=== PATIENT | male | born 1935 | race Hispanic/Latino ===

== ENCOUNTER → 2018-07-13 | Outpatient (CLI) | payer MEDICARE | END | disposition home or self-care (01) | LOC: SHCH 11:09 | PROVIDERS: ATTEND Internal Medicine Cardiovascular Disease | DX: I35.8 Other nonrheumatic aortic valve disorders (principal); R01.1 Cardiac murmur, unspecified | CPT/HCPCS: 93306 ==

== ENCOUNTER → 2018-07-17 | Outpatient (CLI) | payer MEDICARE ==
[~2018-07-17] MED LIST: REGADENOSON 0.4 MG/5 ML PF SYG IVP SCH
== END | disposition home or self-care (01) ==
LOC: SHCH 07:58 → EDUNIT# 08:20
PROVIDERS: ATTEND Internal Medicine Cardiovascular Disease
DX: R01.1 Cardiac murmur, unspecified (principal); I45.10 Unspecified right bundle-branch block
CPT/HCPCS: 78452; 93017; 96374; A9500 ×2; J2785 ×2

== ENCOUNTER 2020-08-31 15:15 | Observation (INO) | payer OTHER ==
[~2020-08-31] VITALS: Ht 167.6 cm; Wt 68.9 kg
[2020-08-31 10:51] LABS: BASOPHILS % (AUTO) 0.9 % (0.0-5.0); HEMATOCRIT 40.7 % (42-54); LYMPHOCYTES % (AUTO) 40.2 % (21.0-51.0); MEAN CORPUSCULAR HEMOGLOBIN 30.9 pg (27.0-33.0); MEAN CORPUSCULAR HGB CONC 33.4 g/dL (32.0-36.0); MEAN CORPUSCULAR VOLUME 92.5 fL (79-99); MONOCYTES % (AUTO) 8.7 % (3.0-13.0); NEUTROPHILS % (AUTO) 47.7 % (40.0-77.0); PLATELET COUNT (AUTO) 167 K/uL (130-400); RED CELL DISTRIBUTION WIDTH 12.7 % (11.0-15.5); WHITE BLOOD COUNT (AUTO) 6.6 K/uL (4.8-10.8)
[2020-08-31 10:52] LABS: APPEARANCE,URINE Clear (CLEAR); BILIRUBIN,URINE Negative (NEGATIVE); COLOR,URINE Yellow (YELLOW); GLUCOSE, URINE (UA) Negative (NEGATIVE); KETONES,URINE Negative (NEGATIVE); LEUKOCYTE ESTERASE ,URINE Negative (NEGATIVE); NITRATE,URINE Negative (NEGATIVE); OCCULT BLOOD,URINE Small (NEGATIVE); PROTEIN,URINE Negative (NEGATIVE); UROBILINOGEN,URINE 0.2 mg/dL (0.2-1.0)
[2020-08-31 10:58] LABS: CREATININE 0.9 mg/dL (0.5-1.5); POTASSIUM 4.3 mmol/L (3.5-5.1)
[2020-08-31 11:01] LABS: INR 1.05 (0.85-1.15); PROTHROMBIN TIME 11.4 SEC (9.6-11.6)
[2020-08-31 11:35] LABS: BACTERIA,URINE Few /HPF (None Seen); SQUAMOUS EPITHELIAL CELL,UR None Seen /HPF (0-2); WBC,URINE 0-1 /HPF (0-1)
[~2020-08-31 15:15] MED LIST changes: +OXYB5TAB15 PO; -REGADENOSON 0.4 MG/5 ML PF SYG IVP SCH; +SIMV10TA97 PO
[2020-09-05 10:24] VITALS: BP 143/73
[2020-09-05] MEDS ORDERED: APIX5TAB PO (10:54)
[2020-09-05] MEDS ORDERED: METF-444 PO (10:54)
[2020-09-05] MEDS ORDERED: METO25TA6 PO (10:54)
[2020-09-06] VITALS (19 sets, daily range): BP systolic 125–150; BP diastolic 71–89
[2020-09-06] MEDS ORDERED: 0.9%NACL 1000ML 1,000 ML IV ONE (07:40)
[2020-09-06] MEDS: CEFAZOLIN SODIUM 1 GM VIAL IVP SCH ×4 (08:03→18:17)
[2020-09-06] MEDS ORDERED: CELECOXIB 200 MG CAP ONE ×2 (09:35→20:10)
[2020-09-06] MEDS ORDERED: ACETAMINOPHEN 500 MG TABLET ONE ×2 (09:35→20:09)
[2020-09-06] MEDS ORDERED: TRANEXAMIC ACID 1000MG/10ML ONE ×2 (09:51→11:14)
[2020-09-06] MEDS ORDERED: SUCCINYLCHOLINE CHLORIDE 20 MG/ML 10 ML VIAL ONE (10:29)
[2020-09-06] MEDS ORDERED: LIDOCAINE PF 100MG/5ML (2%) SYRINGE 5ML ONE (10:29)
[2020-09-06] MEDS ORDERED: ONDANSETRON 4MG INJ ONE (10:30)
[2020-09-06] MEDS ORDERED: PROPOFOL 10 MG/ML 20ML VIAL IV ONE (10:30)
[2020-09-06] MEDS ORDERED: NEOSTIGMINE 5MG/5ML SYR IV ONE (10:30)
[2020-09-06] MEDS ORDERED: GLYCOPYRROLATE 1 MG/5 ML SYRINGE ONE (10:30)
[2020-09-06] MEDS ORDERED: DEXAMETHASONE SOD PHOSPHATE 10MG/ML 1ML VIAL ONE (10:30)
[2020-09-06] MEDS ORDERED: ROCURONIUM 10MG/1ML SYR 10 MG/ML ML ONE (10:31)
[2020-09-06] MEDS ORDERED: MIDAZOLAM HCL 1 MG/ML 2ML VIAL ONE (10:31)
[2020-09-06] MEDS ORDERED: FENTANYL CITRATE PF 50 MCG/1 ML 2ML VIAL ONE (10:31)
[2020-09-06] MEDS ORDERED: EPHEDRINE SULFATE 50 MG/ML AMPULE ONE (10:36)
[2020-09-06] MEDS ORDERED: ROPIVACAINE 0.5% 5MG/ML 30ML IJ ONE (10:39)
[2020-09-06] MEDS ORDERED: HETASTARCH IN 0.9 % NACL 500 ML IV ONE (10:49)
[2020-09-06] MEDS ORDERED: CEFAZOLIN SODIUM 1 GM VIAL IRRIG ONE (11:14)
[2020-09-06] MEDS ORDERED: OXYCODONE HCL 5 MG TAB PO PRN (12:30)
[2020-09-06] MEDS ORDERED: DiphenhydrAMINE HCL 50 MG/ML VIAL IVP PRN (12:30)
[2020-09-06] MEDS ORDERED: TEMAZEPAM 15 MG CAPSULE PO PRN (12:30)
[2020-09-06] MEDS ORDERED: ONDANSETRON 4MG INJ IVP PRN (12:30)
[2020-09-06] MEDS ORDERED: POTASSIUM CHLORIDE 20MEQ/100ML 100 ML IV PRN (12:30)
[2020-09-06] MEDS ORDERED: POTASSIUM CHLORIDE 10% ELIXIR 20 MEQ/15 ML UDCUP PO PRN (12:30)
[2020-09-06] MEDS ORDERED: LIDOCAINE HCL-MPF 1% 2ML VIAL IV PRN (12:30)
[2020-09-06] MEDS ORDERED: KETOROLAC 15MG/ML VIAL (15MG/ML) IV PRN (12:30)
[2020-09-06] MEDS ORDERED: CALCIUM CARB 500MG PO PRN (12:30)
[2020-09-06] MEDS ORDERED: KCL 20 MEQ ERTAB PO PRN (12:30)
[2020-09-06] MEDS: ACETAMINOPHEN 500 MG TABLET PO SCH ×2 (12:30→20:43)
[2020-09-06] MEDS ORDERED: TRAMADOL HCL 50 MG TABLET PO PRN (12:30)
[2020-09-06] MEDS: 0.9%NACL 1000ML 1,000 ML IV SCH ×2 (12:30→12:40)
[2020-09-06] MEDS ORDERED: FERROUS FUMARATE 324 MG TABLET PO PRN (12:30)
[2020-09-06] MEDS ORDERED: MEPERIDINE-PF 25 MG/ML SYG ONE (14:44)
[2020-09-06] MEDS: INSULIN HUMULIN R 100 UNIT/ML 3ML SQ SCH ×3 (15:58→21:00)
[2020-09-06] MEDS ORDERED: INSULIN HUMULIN R 100 UNIT/ML 3ML ONE (16:59)
[2020-09-06] MEDS: OXYBUTYNIN CHLORIDE 5 MG TABLET PO SCH (20:41)
[2020-09-06] MEDS: METOPROLOL TARTRATE 25 MG TAB PO SCH (20:41)
[2020-09-06] MEDS: METFORMIN HCL 500 MG TABLET PO SCH (20:41)
[2020-09-06] MEDS: CELECOXIB 200 MG CAP PO SCH (20:42)
[2020-09-06] MEDS: APIXABAN 5 MG TABLET PO SCH (20:42)
[2020-09-06] MEDS: FAMOTIDINE 20MG TAB PO SCH (20:44)
[2020-09-07] VITALS (7 sets, daily range): BP systolic 93–162; BP diastolic 54–90
[2020-09-07] MEDS ORDERED: OXYCODONE HCL 5 MG TAB ONE (01:02)
[2020-09-07] MEDS: CEFAZOLIN SODIUM 1 GM VIAL IVP SCH (01:30)
[2020-09-07] MEDS: ACETAMINOPHEN 500 MG TABLET PO SCH ×3 (04:30→19:42)
[2020-09-07 05:17] LABS: HEMATOCRIT 32.6 % (42-54); MEAN CORPUSCULAR HEMOGLOBIN 30.1 pg (27.0-33.0); MEAN CORPUSCULAR HGB CONC 32.8 g/dL (32.0-36.0); MEAN CORPUSCULAR VOLUME 91.8 fL (79-99); RED BLOOD CELL COUNT(AUTO) 3.55 MIL/uL (4.50-6.20); RED CELL DISTRIBUTION WIDTH 12.7 % (11.0-15.5); WHITE BLOOD COUNT (AUTO) 11.8 K/uL (4.8-10.8)
[2020-09-07 05:32] LABS: POTASSIUM 4.1 mmol/L (3.5-5.1)
[2020-09-07] MEDS ORDERED: KETOROLAC 15MG/ML VIAL (15MG/ML) IV PRN (07:29)
[2020-09-07] MEDS: INSULIN HUMULIN R 100 UNIT/ML 3ML SQ SCH ×4 (07:30→20:28)
[2020-09-07] MEDS ORDERED: OXYCODONE HCL 5 MG TAB PO PRN ×2 (07:31)
[2020-09-07] MEDS ORDERED: TRAMADOL HCL 50 MG TABLET PO PRN (07:32)
[2020-09-07] MEDS: 0.9%NACL 1000ML 1,000 ML IV SCH (08:30)
[2020-09-07] MEDS: APIXABAN 5 MG TABLET PO SCH ×2 (08:56→19:43)
[2020-09-07] MEDS: OXYBUTYNIN CHLORIDE 5 MG TABLET PO SCH ×2 (08:56→19:42)
[2020-09-07] MEDS: FAMOTIDINE 20MG TAB PO SCH ×2 (08:56→19:42)
[2020-09-07] MEDS: SIMVASTATIN 10 MG TABLET PO SCH (08:56)
[2020-09-07] MEDS: TAMSULOSIN HCL 0.4 MG CAP.ER.24H PO SCH (08:56)
[2020-09-07] MEDS: METFORMIN HCL 500 MG TABLET PO SCH ×3 (08:57→19:45)
[2020-09-07] MEDS: METOPROLOL TARTRATE 25 MG TAB PO SCH ×2 (08:58→19:43)
[2020-09-07] MEDS ORDERED: POLYETHYLENE GLYCOL 3350 17 GM POWD.PACK ONE (09:03)
[2020-09-07] MEDS ORDERED: CELECOXIB 200 MG CAP ONE (09:04)
[2020-09-07] MEDS: CELECOXIB 200 MG CAP PO SCH ×2 (09:13→19:41)
[2020-09-07] MEDS: POLYETHYLENE GLYCOL 3350 17 GM POWD.PACK PO SCH (09:13)
[2020-09-07] MEDS: OXYCODONE HCL 5 MG TAB PO PRN (09:16)
[2020-09-07] MEDS ORDERED: INSULIN HUMULIN R 100 UNIT/ML 3ML ONE (12:12)
[2020-09-08] MEDS: ACETAMINOPHEN 500 MG TABLET PO SCH ×2 (03:52→12:25)
[2020-09-08 03:57] VITALS: BP 109/65
[2020-09-08] MEDS: INSULIN HUMULIN R 100 UNIT/ML 3ML SQ SCH ×2 (05:57→12:13)
[2020-09-08 08:00] VITALS: BP 113/60
[2020-09-08] MEDS: POLYETHYLENE GLYCOL 3350 17 GM POWD.PACK PO SCH ×2 (08:50→08:58)
[2020-09-08] MEDS: METOPROLOL TARTRATE 25 MG TAB PO SCH (08:51)
[2020-09-08] MEDS: APIXABAN 5 MG TABLET PO SCH (08:51)
[2020-09-08] MEDS: METFORMIN HCL 500 MG TABLET PO SCH ×2 (08:51→14:00)
[2020-09-08] MEDS: OXYBUTYNIN CHLORIDE 5 MG TABLET PO SCH (08:51)
[2020-09-08] MEDS: FAMOTIDINE 20MG TAB PO SCH (08:51)
[2020-09-08] MEDS: CELECOXIB 200 MG CAP PO SCH (08:51)
[2020-09-08] MEDS: TAMSULOSIN HCL 0.4 MG CAP.ER.24H PO SCH (08:51)
[2020-09-08] MEDS: SIMVASTATIN 10 MG TABLET PO SCH (08:52)
[2020-09-08] MEDS: OXYCODONE HCL 5 MG TAB PO PRN (08:52)
[2020-09-08 12:00] VITALS: BP 120/70
[2020-09-08] MEDS ORDERED: HYDR-4060 PO (16:13)
[2020-09-08 16:23] VITALS: BP 85/50
[2020-09-08] MEDS ORDERED: 0.9% NACL 500ML IV.SOLN 500 ML IV ONE (16:28)
[2020-09-08 16:58] LABS: HEMATOCRIT 28.9 % (42-54)
[2020-09-08 19:46] VITALS: BP 108/68
[2020-09-09] MEDS ORDERED: BISACODYL 10 MG SUPP.RECT RC PRN (12:30)
== END 2020-09-08 20:26 ==
LOC: EDSTATUS 15:15 → DAHIP 09-06 07:07 → EDSTATUS 09-06 15:15 → 3BH 09-06 15:16
PROVIDERS: ADMIT Orthopaedic Surgery; ATTEND Orthopaedic Surgery
DX: M17.11 Unilateral primary osteoarthritis, right knee (principal); Z20.822 Contact with and (suspected) exposure to COVID-19; M23.8X1 Other internal derangements of right knee; D62 Acute posthemorrhagic anemia; I48.0 Paroxysmal atrial fibrillation; E78.5 Hyperlipidemia, unspecified; E11.9 Type 2 diabetes mellitus without complications; Z85.46 Personal history of malignant neoplasm of prostate; Z96.652 Presence of left artificial knee joint; Z99.89 Dependence on other enabling machines and devices; Z79.01 Long term (current) use of anticoagulants; Z79.899 Other long term (current) drug therapy
CPT/HCPCS: 27447; 36415 ×3; 80048 ×2; 81001; 82948 ×12; 85014; 85018; 85025; 85027; 85610; 87641; 88305; 88311; 96361; 96374; 96375; 96376; 97039 ×4; 97116 ×4; 97161; 97530 ×5; A4215; A4216; A4221; A4222; A4223 ×2; A4649 ×3; A4663; A4930 ×2; A5120; A9272; C1776; G0378 ×52; G8979; G8980; G8981; G8982; G8983; J0330; J0690 ×5; J1100; J1815 ×4; J1885; J2001; J2175; J2250; J2405 ×2; J2704; J2710; J2795; J3010; J3490 ×4; J7030; J7040; J7120; U0003